=== PATIENT | male | born 1940 | race Caucasian/White ===

== ENCOUNTER → 2017-03-26 | Outpatient (CLI) | payer MEDICARE ==
[~2017-03-26] MED LIST: ALLO300T74 PO; AMLO5TAB PO; ATOR40TA20 PO; CARV12.525 PO; FINA5TAB40 PO; HYDR-2164 PO; LOSA50TA52 PO; MAGN400T6 PO; POTA10TA PO; POTA20TA68 PO; RIVA15TA PO; TAMS0.4C46 PO
--- NOTE | 2017-03-26 14:16 | DI ---
Indication: ITS.REASON: R31.0 Gross hematuria; N20.1 Calculus of ureter PROCEDURE: KUB: Encounter: Initial Comparison: December 19, 2015 Findings: Cholecystectomy clips are again noted. Degenerative and postoperative changes in the lumbar spine. There are tiny densities projecting over the interpolar area of the left kidney that could represent small stones. The largest adjacent to the 12th rib measures 3 mm in size and appears similar to the comparison. Kidneys are partially obscured by overlapping bowel gas and stool. Stable left-sided pelvic phleboliths. No definite ureteral stones. Bowel gas pattern is nonobstructive and nonspecific. Impression: Stable exam with left nephrolithiasis. .
== END ==
LOC: IMA 13:30
PROVIDERS: ATTEND Surgery
DX: R31.0 Gross hematuria (principal); N20.1 Calculus of ureter